=== PATIENT | female | born 2000 | race African-American/Black ===

== ENCOUNTER 2019-09-05 17:35 | Observation (INO) | payer MEDICAID ==
[~2019-09-05] VITALS: Ht 172.7 cm; Wt 93.9 kg
[2019-09-05 18:05] VITALS: BP 104/61
== END 2019-09-05 19:13 | disposition home or self-care (01) | DRG 563 ==
LOC: ER 17:35 → LDRP 18:18
PROVIDERS: ADMIT Obstetrics & Gynecology; ATTEND Obstetrics & Gynecology
DX: O20.0 Threatened abortion (principal); Z3A.23 23 weeks gestation of pregnancy
CPT/HCPCS: 59025; 81002; 99284; G0378

== ENCOUNTER 2020-11-23 14:25 | Emergency (ER) | payer MEDICAID ==
[~2020-11-23] VITALS: Ht 175.3 cm; Wt 82.6 kg
[2020-11-23 17:12] VITALS: BP 127/66
== END 2020-11-23 18:16 | disposition home or self-care (01) ==
LOC: ER 14:25
DX: O20.0 Threatened abortion (principal); O23.41 Unspecified infection of urinary tract in pregnancy, first trimester; Z3A.01 Less than 8 weeks gestation of pregnancy
CPT/HCPCS: 36415; 81002; 81025; 84702

== ENCOUNTER 2021-09-22 16:43 | Observation (INO) | payer MEDICAID ==
[~2021-09-22] VITALS: Ht 172.7 cm; Wt 102.1 kg
[2021-09-22 19:12] LABS: Basophils # (auto) 0 10 ^3/uL (0-0.2); Basophils % (auto) 0.3 % (0.0-2.0); Eosinophils # (auto) 0.1 10 ^3/uL (0-0.8); Eosinophils % (auto) 1.3 % (0.0-7.0); Hemoglobin 10.6 g/dL (12.2-16.2); Lymphocytes % (auto) 24.7 % (10.0-50.0); Mean Corpuscular Hemoglobin 27.1 pg (28.0-32.0); Mean Corpuscular Hgb Conc. 33.1 g/dL (32.0-36.0); Mean Corpuscular Volume 82.1 fL (80.0-100.0); Monocytes # (auto) 0.6 10 ^3/uL (0-1.3); Monocytes % (auto) 7.8 % (0.0-12.0); Neutrophils # (auto) 5.3 10 ^3/uL (1.6-8.6); Neutrophils % (auto) 65.9 % (37.0-80.0); Nucleated Red Blood Cells % 0.1 %; Red Cell Distribution Width 14.2 % (11.8-14.3)
[2021-09-22 19:30] LABS: INR 0.97 (0.9-1.15); Partial Thromboplastin Time 27.1 sec (23.6-33.0)
[2021-09-22 19:35] LABS: Albumin 2.8 g/dL (3.4-5.0); BUN/Creatinine Ratio 9.4; Calcium 9.2 mg/dL (8.5-10.1); Potassium 3.8 mmol/L (3.5-5.1)
[2021-09-22 19:38] LABS: Bilirubin, Total 0.3 mg/dL (0.2-1.0); Total Protein 6.8 g/dL (6.4-8.2)
[2021-09-22] MEDS ORDERED: PREN-96 PO (19:43)
[2021-09-22] MEDS ORDERED: METR500T PO (19:44)
[2021-09-22 20:14] LABS: Urine Bacteria NONE SEEN /hpf (None Seen); Urine Blood Negative /uL (Negative); Urine Specific Gravity 1.003 (1.001-1.035); Urine WBC 9 /hpf (0 - 5)
[2021-09-22 20:29] LABS: Alcohol, Urine < 3.0 mg/dL (0-10); Amphetamine Screen, Urine NEGATIVE (NEGATIVE); Barbiturate Scree,Urine NEGATIVE (NEGATIVE); Benzodiazephine Screen, Urine NEGATIVE (NEGATIVE); Cannabinoid Screen, Urine NEGATIVE (NEGATIVE); Cocaine Screen, Urine NEGATIVE (NEGATIVE); Opiate Scree,Urine NEGATIVE (NEGATIVE); Phencyclidine Screen, Urine NEGATIVE (NEGATIVE)
[2021-09-24 07:06] LABS: Rubella Antibodies, IgG 1.17 index (Immune >0.99)
== END 2021-09-22 20:05 | disposition home or self-care (01) ==
LOC: LDRP 16:43
PROVIDERS: ADMIT Obstetrics & Gynecology; ATTEND Obstetrics & Gynecology
DX: O62.9 Abnormality of forces of labor, unspecified (principal); O26.893 Other specified pregnancy related conditions, third trimester; R10.2 Pelvic and perineal pain; N89.8 Other specified noninflammatory disorders of vagina; Z3A.35 35 weeks gestation of pregnancy; Z79.899 Other long term (current) drug therapy; Z98.890 Other specified postprocedural states
CPT/HCPCS: 36415; 59025; 76805; 80053; 80307; 81001; 81002; 85025; 85610; 85730; 86592; 86703; 86762; 86850; 86900; 86901; 87081; 87210; 87340; 87491; 87591; G0378; G0379

== ENCOUNTER 2021-10-17 23:45 | Observation (INO) | payer MEDICAID ==
[~2021-10-17] VITALS: Ht 175.3 cm; Wt 127.0 kg
[~2021-10-17 23:45] MED LIST: METR500T PO; PREN-96 PO
[2021-10-18 01:39] LABS: Amphetamine Screen, Urine NEGATIVE (NEGATIVE); Barbiturate Scree,Urine NEGATIVE (NEGATIVE); Benzodiazephine Screen, Urine NEGATIVE (NEGATIVE); Cannabinoid Screen, Urine NEGATIVE (NEGATIVE)
[2021-10-18 01:46] LABS: Alcohol, Urine < 3.0 mg/dL (0-10); Cocaine Screen, Urine NEGATIVE (NEGATIVE); Opiate Scree,Urine NEGATIVE (NEGATIVE); Phencyclidine Screen, Urine NEGATIVE (NEGATIVE)
== END 2021-10-18 01:35 | disposition home or self-care (01) ==
LOC: LDRP 23:45
PROVIDERS: ADMIT Obstetrics & Gynecology; ATTEND Obstetrics & Gynecology
DX: O62.9 Abnormality of forces of labor, unspecified (principal); Z3A.38 38 weeks gestation of pregnancy; Z79.899 Other long term (current) drug therapy
CPT/HCPCS: 59025; 80307; G0378